=== PATIENT | male | born 1970 | race Caucasian/White ===

== ENCOUNTER → 2017-05-02 | Outpatient (CLI) | payer OTHER ==
[2017-05-02 10:26] LABS: CHOLESTEROL/HDL RATIO 5.1
== END | disposition home or self-care (01) ==
LOC: C.LAB 09:32
PROVIDERS: ATTEND Family Medicine
DX: Z00.00 Encounter for general adult medical examination without abnormal findings (principal)

== ENCOUNTER → 2017-08-11 | Outpatient (CLI) | payer OTHER ==
[2017-08-11 10:46] LABS: ALBUMIN 4.1 gm/dl (3.4-5.0); TOTAL PROTEIN 7.9 gm/dl (6.4-8.2)
== END | disposition home or self-care (01) ==
LOC: C.LAB 09:40
PROVIDERS: ATTEND Family Medicine
DX: E78.5 Hyperlipidemia, unspecified (principal)

== ENCOUNTER 2024-09-30 09:19 | Inpatient (IN) ==
--- NOTE | 2024-09-30 09:31 | Emergency Department Note ---
Impression & Plan Atrial fibrillation with RVR, Smokeless tobacco use, SANDOVAL (dyspnea on exertion) ED Provider Note NAME: JAQUELINE BELL AGE: 54 SEX: M : 1970 ARRIVES VIA: Walk-In INFORMANT: Patient, ED PROVIDER(S): Arnav Jasmine MD CHIEF COMPLAINT: Shortness of breath, palpitations MEDICAL DECISION MAKING: Patient presents with the above. The patient's EKG does show concern for A-fib with RVR. [place] of IV fluids 500 cc bolus was ordered in addition to routine blood work chest x-ray. The patient was ordered Lopressor 5 mg every 5 minutes. Patient with heart rate improvement into the 120s 130s. Patient's blood work shows a normal white count hemoglobin 13.6 with a normal platelet count. The patient's kidney function unremarkable BSG 122. Troponin negative but borderline. Chest x-ray without evidence of obvious pneumonia or volume overload. I did speak with Dr. Adhikari who agreed with Cardizem bolus and drip. Patient ordered 15 mg Cardizem IV bolus and subsequent drip. I did speak with the on-call hospitalist service Dr. Jones and the patient was admitted to the medicine service. Patient's [id number] score of 1 heparin deferred at this time. Critical Care: I have personally spent 43 minutes of critical care time in direct management of this patient. This includes bedside care, interpretation of diagnostic studies, and testing, discussion with consultants, patient, and family members, and other require inpatient management activities. This 43 minutes is in excess of all separately billable procedures. Discussion w/ other healthcare providers: Dr. Adhikari cardiology Dr. Jones inpatient medicine service Prior /Outside records reviewed: None Differential diagnosis: Premature contractions, electrolyte abnormality, cardiac dysrhythmia, thyroid dysfunction, infection, toxicologic, anxiety among others were considered. Diagnostics, as interpreted by me: ECG: A-fib RVR, ventricular rate of 159 with a normal QRS duration, normal axis no obvious ST elevations. Cardiac monitoring: An order was placed for continuous cardiac monitoring. The monitor shows a rate of 162 with irregularly irregular and tachycardic rhythm. Patient was placed on pulse oximetry Medical decision rules: [id number] score Imaging studies: I informally interpreted the patient's chest x-ray does not show evidence of obvious pneumonia or pneumothorax with formal report to follow. HPI: Patient presents due to concern for shortness of breath chest tightness and associated palpitations. The patient states that he has been more winded with activity just in the last 2 to 3 days. Patient reports that he does play a fair amount of golf and had noticed this about 2 days ago. The patient does ride in the car but because it has been quite path only the patient has been walking a bit more on the course. Patient denies any cough or fever. The patient states that he woke up around 230 this morning and had some palpitations but this eventually resolved. At that time the patient thought he had a scant wheeze and some mild chest tightness. The patient states that when he woke up again the patient has some worsening discomfort and is presented here. No prior history of heart or lung disease or A-fib. The patient denies any recent travel. No recent surgeries procedures or hospitalizations and no recent [place] or plane travel. No leg swelling or calf pain. Patient states that he does use long cut smokeless tobacco and uses less than 1 can per day. He may have 1 caffeinated soda daily. He denies any alcohol or drug use. PAST MEDICAL HISTORY: See Below PAST SURGICAL HISTORY: See Below SOCIAL HISTORY: See Below HOME MEDICATIONS: See Below ALLERGIES: See Below VITALS: See Below PHYSICAL EXAMINATION: GENERAL: NAD, non-toxic. EYE EXAM: Normal conjunctiva. PERRL, no anisocoria and EOM's grossly intact w/o pain. OROPHARYNX: Moist mucus membranes, grossly normal dentition. NECK: Trachea midline, no stridor. LUNGS: Clear to auscultation. Normal chest wall mechanics. HEART: Tachycardic and irregular irregular, no MRG. ABDOMEN: Abdomen soft, non-tender, no masses, no rebound or guarding. BACK: No CVA TTP. SKIN: No rashes and no bruising. UPPER EXTREMITIES: Upper extremities are grossly normal. LOWER EXTREMITIES: Grossly normal, no edema. Negative Homans' sign bilaterally NEURO EXAM: Awake and alert, follows commands, no obvious facial asymmetry, normal speech, moves all 4 extremities. Past Med/Surg History Problem List (Updated 09/30/24 @ 15:12 by Arnav Jasmine MD) SANDOVAL (dyspnea on exertion) (Acute) Smokeless tobacco use (Acute) Atrial fibrillation with RVR (Acute) Rhinitis medicamentosa Medical History Tibia/fibula fracture left, s/p ORIF Obesity (BMI 30-39.9) Essential hypertension Migraine Chronic sinusitis, unspecified Chronic rhinitis Surgical History S/P ORIF (open reduction internal fixation) fracture left tib-fib fracture Family History Father , age 67 Coronary heart disease CHF (congestive heart failure) Mother , age 75 Pulmonary fibrosis Brother Hypertension Hyperlipidemia Social History Smoking Status: Former smoker Tobacco Type: Smokeless Tobacco (Dip or Chew) Smoking End Date: quit cigarettes in his 20s; then switched to snuff; Do You Dip or Chew Tobacco: Yes; Hx Alcohol Use: No Hx Substance Use: No Preferred Language: Sami Communication Ability: Effective Barker Operator Required: No Beliefs That Will Affect Care: None marital status: Current Living Situation: Spouse Current Living Situation Comment: home in [place] current occupational status: employed 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 How many Children do You have: 0 Other Information That Helps Us Care for You: No Feels Safe at Home: Yes Safety Concerns: Feels Safe At This Time Assistive Devices: None Allergies Allergies Allergy/AdvReac Type Severity Reaction Status Date / Time Penicillins Allergy Severe Swelling Verified 06/15/23 10:54 of Lip/Tongue/Throat Home Meds Home Medications Medication Instructions Recorded Confirmed escitalopram oxalate 10 mg tablet 20 mg PO PM 06/12/22 09/30/24 (Lexapro) hydrochlorothiazide 25 mg tablet 25 mg PO QAM 06/12/22 09/30/24 losartan 100 mg tablet 100 mg PO PM 06/12/22 09/30/24 Results & Data (ED) Vital Signs Vital Signs - 24 hr 09/30/24 09:19 09/30/24 09:19 09/30/24 09:24 Temperature 36.3 C L Temperature Source Skin Pulse Rate 91 H Respiratory Rate 22 Respiratory Effort / Characteristics Non-Labored Respiratory Depth Normal Blood Pressure 138/102 H Blood Pressure Mean 114 Pulse Oximetry 96 Oxygen Delivery Method Room Air Room Air Room Air Sepsis Recent Fever Within 48 Hours No Sepsis New/Unexplained Change in Mental Status N/A Sepsis Action Taken by Nursing No Action Required 09/30/24 09:38 09/30/24 09:39 09/30/24 09:48 Temperature Temperature Source Pulse Rate 162 H 146 H 158 H Respiratory Rate 16 14 Respiratory Effort / Characteristics Respiratory Depth Blood Pressure 146/119 H 161/99 H Blood Pressure Mean 128 119 Pulse Oximetry 98 Oxygen Delivery Method Sepsis Recent Fever Within 48 Hours Sepsis New/Unexplained Change in Mental Status Sepsis Action Taken by Nursing 09/30/24 09:51 09/30/24 10:07 09/30/24 10:09 Temperature Temperature Source Pulse Rate 157 H 152 H 130 H Respiratory Rate 18 Respiratory Effort / Characteristics Respiratory Depth Blood Pressure 146/119 H 161/99 H 161/99 H Blood Pressure Mean 119 Pulse Oximetry Oxygen Delivery Method Sepsis Recent Fever Within 48 Hours Sepsis New/Unexplained Change in Mental Status Sepsis Action Taken by Nursing 09/30/24 10:17 09/30/24 10:30 09/30/24 10:45 Temperature Temperature Source Pulse Rate 136 H 135 H 136 H Respiratory Rate 15 17 Respiratory Effort / Characteristics Respiratory Depth Blood Pressure 153/115 H 128/110 H 125/103 H Blood Pressure Mean 116 110 Pulse Oximetry Oxygen Delivery Method Sepsis Recent Fever Within 48 Hours Sepsis New/Unexplained Change in Mental Status Sepsis Action Taken by Nursing 09/30/24 11:15 09/30/24 11:42 Temperature Temperature Source Pulse Rate 123 H 123 H Respiratory Rate 22 12 Respiratory Effort / Characteristics Respiratory Depth Blood Pressure 125/103 H 146/91 H Blood Pressure Mean 110 109 Pulse Oximetry Oxygen Delivery Method Sepsis Recent Fever Within 48 Hours Sepsis New/Unexplained Change in Mental Status Sepsis Action Taken by Custodial Medications Current Medication List: was personally reviewed by [place] Laboratory Data Attestation: I reviewed the patient's lab results. 09/30/24 09:46 09/30/24 09:46 Lab Results 09/30/24 Range/Units 09:46 WBC 9.02 (4.8-10.8) K/ul RBC 4.49 L (4.70-6.10) M/uL Hgb 13.6 L (14.0-18.0) g/dl Hct 40.1 L (42.0-52.0) % MCV 89.3 (80.0-100.0) fL MCH 30.3 (25.0-34.0) pg MCHC 33.9 (32.0-36.0) g/dL RDW Std Deviation 41.1 (36.4-46.3) fL RDW Coeff of Todd 12.6 (11.5-14.5) % Plt Count 254 (130-400) K/uL MPV 9.9 (9.4-12.4) fL Immature Gran % (Auto) 0.3 % Neut % (Auto) 74.9 % Lymph % (Auto) 15.2 % [place] % (Auto) 7.0 % Eos % (Auto) 2.4 % Baso % (Auto) 0.2 % Neut # (Auto) 6.75 H (1.40-6.50) K/uL Lymph # (Auto) 1.37 (1.20-3.40) K/uL [place] # (Auto) 0.63 H (0.11-0.59) K/uL Eos # (Auto) 0.22 (0.00-0.50) K/uL Baso # (Auto) 0.02 (0.00-0.20) K/uL Immature Gran # (Auto) 0.03 (0.01-0.20) K/uL PT 11.5 (9.0-12.0) Seconds INR 1.1 (0.9-1.1) APTT 25 (21-31) Seconds PTT Ratio 0.9 Sodium 139 (136-145) mmol/L Potassium 3.9 (3.5-5.1) mmol/L Chloride 107 (98-107) mmol/L Carbon Dioxide 22 (21-32) mmol/L Anion Gap 10 (3-11) BUN 18 (6-23) mg/dl Creatinine 0.90 (0.6-1.4) mg/dl Est Cr Clr Drug Dosing 136.4 ml/min eGFR 101.49 BUN/Creatinine Ratio 20.0 (10-20) Glucose 122 H (70-99(Fasting)) mg/dl Estimat Average Glucose 114 mg/dl Hemoglobin A1c 5.6 (4.5-5.6) % Calcium 9.4 (8.6-10.3) mg/dl Phosphorus 3.1 (2.5-4.9) mg/dl Magnesium 2.0 (1.7-2.4) mg/dl Total Bilirubin 0.6 (0.2-1.0) mg/dl AST 16 (13-39) U/L ALT 27 (7-52) U/L Alkaline Phosphatase 64 (34-104) U/L Troponin I High Sens 19.6 (0-20) pg/ml Total Protein 7.4 (6.0-8.3) gm/dl Albumin 4.3 (3.4-5.0) gm/dl Globulin 3.1 (2.5-4.0) gm/dl Albumin/Globulin Ratio 1.4 (0.9-2) TSH 1.540 (0.300-4.500) uIu/ml Administered Medications Diltiazem HCl 125 mg/ Dextrose 125 mls @ 7.5 mls/hr IV .[id number] [facility]; Protocol Stop: 10/30/24 10:44 Last Titration: 09/30/24 12:43 Dose: 7.5 mg/hr, 7.5 mls/hr Documented By: FAMILIA Co-signed By: ALEKSANDR Admin: 09/30/24 11:02 Dose: 5 mg/hr, 5 mls/hr Documented By: FAMILIA Co-signed By: BUD Discontinued Medications Diltiazem HCl (Diltiazem Hcl 5 Mg/Ml 5 Ml Vial) 15 mg IV NOW STA Stop: 09/30/24 10:38 Last Admin: 09/30/24 11:03 Dose: 15 mg Documented By: FAMILIA Co-signed By: BUD Furosemide (Furosemide Inj 20 Mg/2 Ml Vial) 20 mg IV ONE ONE Stop: 09/30/24 13:11 Last Admin: 09/30/24 13:48 Dose: 20 mg Documented By: FAMILIA Sodium Chloride (Nss) 500 mls @ 999 mls/hr IV .Q31M ONE Stop: 09/30/24 11:07 Last Infusion: 09/30/24 15:07 Dose: Infused Documented By: Admin: 09/30/24 11:03 Dose: 999 mls/hr Documented By: FAMILIA Metoprolol Tartrate (Metoprolol Tartrate 1 Mg/Ml Vial) 5 mg IV Q5M PRN PRN Reason: Tachycardia Stop: 10/30/24 09:38 Last Admin: 09/30/24 10:17 Dose: 5 mg Documented By: Admin: 09/30/24 10:07 Dose: 5 mg Documented By: Admin: 09/30/24 09:51 Dose: 5 mg Documented By: FAMILIA Miscellaneous (Stat Iv Infusion Titration Per Protocol) 1 each N/A NOW STA Stop: 09/30/24 10:38 Last Admin: 09/30/24 11:03 Dose: Not Given Documented By: FAMILIA Potassium Chloride (Potassium Chloride Crtab 20 Meq Tabcr) 20 meq PO NOW STA Stop: 09/30/24 13:11 Last Admin: 09/30/24 13:49 Dose: 20 meq Documented By: FAMILIA Imaging Data Radiologist's Impression: Chest X-Ray 09/30/24 09:39 XR chest 1V portable CLINICAL HISTORY: Dyspnea COMPARISON STUDY: None FINDINGS: Heart size and pulmonary vasculature are normal. Inspiration is shallow. No effusion, consolidation, or pneumothorax. IMPRESSION: No acute findings. ACT 112: Negative or not required by law. Electronically signed by: Keo Monterroso M.D. 09/30/2024 10:23 AM Discharge Plan Visit Data Chief Complaint: Shortness of Breath/Dyspnea Stated Complaint: HEART TIGHTNESS, SOB ED Provider: Arnav Jasmine Discharge Problem: Atrial fibrillation with RVR, Smokeless tobacco use, SANDOVAL (dyspnea on exertion) Patient Disposition: Admitted As Inpatient Condition: Good Discharge Instructions Interventions: ED Discharge Assessment Last Done: 09/30/24 14:03
[2024-09-30 10:04] LABS: Basophils # (auto) 0.02 K/uL (0.00-0.20); Basophils % (auto) 0.2 %; Eosinophils # (auto) 0.22 K/uL (0.00-0.50); Eosinophils % (auto) 2.4 %; Hematocrit (blood only) 40.1 % (42.0-52.0); Hemoglobin 13.6 g/dl (14.0-18.0); Immature Granulocytes # (auto) 0.03 K/uL (0.01-0.20); Immature Granulocytes % (auto) 0.3 %; Lymphocytes # (auto) 1.37 K/uL (1.20-3.40); Lymphocytes % (auto) 15.2 %; Mean Corpuscular Hemoglobin 30.3 pg (25.0-34.0); Mean Corpuscular Hgb Conc 33.9 g/dL (32.0-36.0); Mean Corpuscular Volume 89.3 fL (80.0-100.0); Mean Platelet Volume 9.9 fL (9.4-12.4); Monocytes # (auto) 0.63 K/uL (0.11-0.59); Neutrophils # (auto) 6.75 K/uL (1.40-6.50); Neutrophils % (auto) 74.9 %; Platelet Count 254 K/uL (130-400); RDW Coefficient of Variation 12.6 % (11.5-14.5); RDW Standard Deviation 41.1 fL (36.4-46.3); Red Blood Count 4.49 M/uL (4.70-6.10); White Blood Count 9.02 K/ul (4.8-10.8)
[2024-09-30 10:24] LABS: Albumin Globulin Ratio 1.4 (0.9-2); Albumin Level 4.3 gm/dl (3.4-5.0); Bilirubin,Total 0.6 mg/dl (0.2-1.0); Calcium 9.4 mg/dl (8.6-10.3); Creatinine Clr Calc Pharmacy 136.4 ml/min; Globulin 3.1 gm/dl (2.5-4.0); Phosphorus 3.1 mg/dl (2.5-4.9); Potassium 3.9 mmol/L (3.5-5.1); Total Protein 7.4 gm/dl (6.0-8.3)
--- NOTE | 2024-09-30 10:24 | XRay Report ---
XR chest 1V portable CLINICAL HISTORY: Dyspnea COMPARISON STUDY: None FINDINGS: Heart size and pulmonary vasculature are normal. Inspiration is shallow. No effusion, conso lidation, or pneumothorax. IMPRESSION: No acute findings. ACT 112: Negative or not required by law. Electronically signed by: Keo Monterroso M.D. 09/30/2024 10:23 AM
[2024-09-30 10:29] LABS: Troponin I High Sensitivity 19.6 pg/ml (0-20)
[2024-09-30 10:37] LABS: INR 1.1 (0.9-1.1); Partial Thromboplastin Ratio 0.9; Partial Thromboplastin Time 25 Seconds (21-31); Prothrombin Time 11.5 Seconds (9.0-12.0)
--- NOTE | 2024-09-30 11:34 | History & Physical Report ---
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 Upon ER presentation found to be in a.fib with RVR. #a.fib with RVR - -metoprolol 5mg IV x 3 doses without appreciable effect on rates -thus, diltiazem bolus followed by drip instituted by ER physician -will continue diltiazem drip, titrate as needed -add back metoprolol tartrate 25mg BID -although CHADS-VASC score is only 1 (HTN only; a1c not c/w T2DM) will add Eliquis 5mg BID in the event he does not convert back to NSR spontaneously and elective cardioversion is needed in 1 month -of note TSH, K, mag all wnl -echo - check LV function, check valve function -place cardiology consult to Dr Adhikari, appreciate his assistance -repeat labs in am -although not fully certain I am concerned he is in pulmonary edema given his symptoms last few days (dyspnea on exertion, PND, "wheezing", etc) and his lung exam findings -lasix 20mg IV x 1 with K supplement -re-eval tomorrow -labs in am #HTN - -hold HCTZ & losartan to allow more room in BP while on diltiazem & metoprolol #obesity - -BMI 37.8 #smokeless tobacco use - -nicoderm patch while here #mood disorder - -cont lexapro daily #DVT Proph - -Eliquis 5mg BID #h/o mild YOCASTA - -by report had sleep study several years ago that was classified as mild & device was not advised - reports he snores so loudly that she has to sleep in different room -repeat sleep study as outpatient again? 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 Patient states he was in his usual state of health until last Thursday when he was playing a round of golf and noted dyspnea on exertion. He typically does not have any shortness of breath while golfing. Then on Thursday of this week he was walking his dog up a hill in [place] and noted dyspnea on exertion once again which is not typical for him. He then noted on that he simply wasn't feeling that well. He continued to note mild dyspnea on exertion. Then, early this am, he had the orthopnea/etc that was mentioned above. Upon presentation to [facility] he was found to be in rapid a.fib. Lopressor 5mg x 3 doses IV were given without rate improvement. Thus, diltiazem drip was initiated. Denies any LE edema or abdominal swelling. Denies any prior h/o a.fib. Denies excessive etoh use although he does drink a couple of times/week - perhaps 2-3 beers each time. Denies recent travel. Denies any prior thyroid disease. Had sleep study a few years ago showing mild YOCASTA only. states he still continues to snore very loudly at night. Allergies Allergy/AdvReac Type Severity Reaction Status Date / Time Penicillins Allergy Severe Swelling Verified 06/15/23 10:54 of Lip/Tongue/Throat Home Medications Medication Instructions Recorded Confirmed Type escitalopram oxalate 10 mg tablet 20 mg PO PM 06/12/22 09/30/24 History (Lexapro) hydrochlorothiazide 25 mg tablet 25 mg PO QAM 06/12/22 09/30/24 History losartan 100 mg tablet 100 mg PO PM 06/12/22 09/30/24 History Past Med/Surg History Problem List (Updated 09/30/24 @ 16:43 by Aung Adhikari MD) Essential hypertension SANDOVAL (dyspnea on exertion) (Acute) Smokeless tobacco use (Acute) Atrial fibrillation with RVR (Acute) Rhinitis medicamentosa Medical History Tibia/fibula fracture left, s/p ORIF Obesity (BMI 30-39.9) Essential hypertension Migraine Chronic sinusitis, unspecified Chronic rhinitis Surgical History S/P ORIF (open reduction internal fixation) fracture left tib-fib fracture Family History Father , age 67 Coronary heart disease CHF (congestive heart failure) Mother , age 75 Pulmonary fibrosis Brother Hypertension Hyperlipidemia Social History Smoking Status: Former smoker Tobacco Type: Smokeless Tobacco (Dip or Chew) Smoking End Date: quit cigarettes in his 20s; then switched to snuff; Do You Dip or Chew Tobacco: Yes; Hx Alcohol Use: No Hx Substance Use: No Preferred Language: Burundian Communication Ability: Effective Construction Site Crossing Guard Required: No Beliefs That Will Affect Care: None marital status: Current Living Situation: Spouse Current Living Situation Comment: home in [place] current occupational status: employed 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 How many Children do You have: 0 Other Information That Helps Us Care for You: No Feels Safe at Home: Yes Safety Concerns: Feels Safe At This Time Assistive Devices: None Review of Systems Review of Systems: gen - no fevers, chills, loss of appetite or significant weight change eyes - no loss of vision HENT - chronic rhinitis CV - chest tightness this am at 0230; no pain; palpitations early this am; orthopnea/PND; no edema pulm - dyspnea on exertion for the last week or so GI - no nausea/emesis/abd pain/blood in stool - no hematuria musculo - no myalgias neuro - no motor weakness, paresthesias or headache skin - no generalized rash endo - no h/o DM Physical Exam Physical Exam: gen - pleasant, obese, NAD eyes - PERRL HENT - MMM, no lesions neck - difficult to assess for JVD due to neck size; no bruits, no mass, no lymph nodes heart - tachy, s1 s2, irregularly irregular, no murmur lungs - fine b/l basilar rales, no increased work of breathing, no wheezes abd - soft NT ND BS+; no HSM ext - no edema vascular - pulses b/l feet 2+ psych - a/o x 3 neuro - strength 5/5 x 4 exts, DTRs 2+ b/l Results & Data Results & Data Vital Signs (Past 12 Hours) Vital Signs Temp Pulse Resp BP Pulse Ox O2 Del Method 09/30/24 10:17 136 H 153/115 H 09/30/24 10:07 152 H 161/99 H 09/30/24 09:51 157 H 146/119 H 09/30/24 09:38 162 H 09/30/24 09:24 36.3 C L 91 H 22 138/102 H 96 Room Air 09/30/24 09:19 Room Air 09/30/24 09:19 Room Air Laboratory Results Laboratory Results - last 24 hr 09/30/24 09:46 WBC 9.02 RBC 4.49 L Hgb 13.6 L Hct 40.1 L MCV 89.3 MCH 30.3 MCHC 33.9 RDW Std Deviation 41.1 RDW Coeff of Todd 12.6 Plt Count 254 MPV 9.9 Immature Gran % (Auto) 0.3 Neut % (Auto) 74.9 Lymph % (Auto) 15.2 [place] % (Auto) 7.0 Eos % (Auto) 2.4 Baso % (Auto) 0.2 Neut # (Auto) 6.75 H Lymph # (Auto) 1.37 [place] # (Auto) 0.63 H Eos # (Auto) 0.22 Baso # (Auto) 0.02 Immature Gran # (Auto) 0.03 PT 11.5 INR 1.1 APTT 25 PTT Ratio 0.9 Sodium 139 Potassium 3.9 Chloride 107 Carbon Dioxide 22 Anion Gap 10 BUN 18 Creatinine 0.90 Est Cr Clr Drug Dosing 136.4 eGFR 101.49 BUN/Creatinine Ratio 20.0 Glucose 122 H Estimat Average Glucose 114 Hemoglobin A1c 5.6 Calcium 9.4 Phosphorus 3.1 Magnesium 2.0 Total Bilirubin 0.6 AST 16 ALT 27 Alkaline Phosphatase 64 Troponin I High Sens 19.6 Total Protein 7.4 Albumin 4.3 Globulin 3.1 Albumin/Globulin Ratio 1.4 TSH 1.540 Diagnostic Findings Chest X-Ray 09/30/24 09:39 XR chest 1V portable CLINICAL HISTORY: Dyspnea COMPARISON STUDY: None FINDINGS: Heart size and pulmonary vasculature are normal. Inspiration is shallow. No effusion, consolidation, or pneumothorax. IMPRESSION: No acute findings. ACT 112: Negative or not required by law. Electronically signed by: Keo Monterroso M.D. 09/30/2024 10:23 AM EKG - rapid a.fib, IRBBB, no ST changes Code Status & VTE Plan Code Status full code PG Care Time/CCT Total # of Minutes Spent Total Time Spent with Patient: Total time spent is greater than 50% in coordination of care (as documented) at patient's floor/unit and/or counseling patient: Coding Level of Care Code 79105 INT INP/OBS CARE 2/55MIN Diagnoses Atrial fibrillation with RVR I48.91 Essential hypertension I10 Obesity (BMI 30-39.9) E66.9 Smokeless tobacco use Z72.0
[2024-09-30 12:22] LABS: Thyroid Stimulating Hormone 1.54 uIu/ml (0.300-4.500)
[2024-09-30 12:23] LABS: Estimated Average Glucose 114 mg/dl; Hemoglobin A1C 5.6 % (4.5-5.6)
--- NOTE | 2024-09-30 13:44 | XCELERA ---
[id number]
--- NOTE | 2024-09-30 14:15 | Electrocardiogram Report ---
Test Reason : Blood Pressure : */* mmHG Vent. Rate : 159 BPM Atrial Rate : * BPM P-R Int : * ms QRS Dur : 100 ms QT Int : 286 ms P-R-T Axes : * -21 19 degrees QTcB Int : 465 ms Atrial fibrillation with rapid ventricular response Incomplete right bundle branch block Abnormal ECG No previous ECGs available Confirmed by Aung Adhikari ([id number]) on 09/30/2024 2:15:18 PM Referred By: Confirmed By: Aung Adhikari
--- NOTE | 2024-09-30 16:17 | Electrocardiogram Report ---
Test Reason : Blood Pressure : */* mmHG Vent. Rate : 135 BPM Atrial Rate : * BPM P-R Int : * ms QRS Dur : 104 ms QT Int : 334 ms P-R-T Axes : * -12 24 degrees QTcB Int : 501 ms Atrial fibrillation with rapid ventricular response Incomplete right bundle branch block Abnormal ECG When compared with ECG of 30-Sep-2024 09:33, No significant change was found Confirmed by Aung Adhikari ([id number]) on 09/30/2024 4:16:52 PM Referred By: REFERRED SELF Confirmed By: Aung Adhikari
--- NOTE | 2024-09-30 16:46 | Cardiology Consultation ---
Date of Consultation September 30, 2024 Assessment & Plan (1) Atrial fibrillation with RVR: -Likely started hide with this morning, or on Thursday. -Agree with diltiazem drip. -Would institute metoprolol to tartrate. -Would start Eliquis 5 Mg twice daily to keep our options open. -[id number] score "1" for hypertension. (2) Essential hypertension: -Adequate control on current regimen. History of Present Illness Attending Physician: Missael Jones MD History of Present Illness Mr. Kruse is a 54-year-old male admitted earlier today with new onset atrial fibrillation and a rapid ventricular response. This consultation was ordered to assist in his cardiac management. The patient was in his usual state of health until Thursday. While playing golf, he noticed some exertional dyspnea which was somewhat unusual. No chest pain or palpitations. This morning, at 2:30 AM, the patient awoke from sleep with an upper sternal chest "heaviness" and orthopnea. He was quite concerned, therefore, presented to the emergency room. On arrival here, he was noted to be in atrial fibrillation with a rapid ventricular response. He received 3 doses of intravenous metoprolol with little change. He was then started on a diltiazem drip. The patient has never known diagnosis of atrial fibrillation. He has never exp erienced sustained palpitations. Currently, patient is resting comfortably in bed and without complaints. Past medical and surgical history 1. Hypertension 2. Obesity 3. Obstructive sleep apnea 4. Migraine headaches 5. Chronic sinusitis 6. Left tib/fib ORIF 7. 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 Allergies Allergy/AdvReac Type Severity Reaction Status Date / Time Penicillins Allergy Severe Swelling Verified 06/15/23 10:54 of Lip/Tongue/Throat Home Medications Medication Instructions Recorded Confirmed Type escitalopram oxalate 10 mg tablet 20 mg PO PM 06/12/22 09/30/24 History (Lexapro) hydrochlorothiazide 25 mg tablet 25 mg PO QAM 06/12/22 09/30/24 History losartan 100 mg tablet 100 mg PO PM 06/12/22 09/30/24 History Patient History Medical History Tibia/fibula fracture left, s/p ORIF Obesity (BMI 30-39.9) Essential hypertension Migraine Chronic sinusitis, unspecified Chronic rhinitis Surgical History S/P ORIF (open reduction internal fixation) fracture left tib-fib fracture Family History Father , age 67 Coronary heart disease CHF (congestive heart failure) Mother , age 75 Pulmonary fibrosis Brother Hypertension Hyperlipidemia Social History Smoking Status: Former smoker Tobacco Type: Smokeless Tobacco (Dip or Chew) Smoking End Date: quit cigarettes in his 20s; then switched to snuff; Do You Dip or Chew Tobacco: Yes; Hx Alcohol Use: No Hx Substance Use: No Preferred Language: Telugu Communication Ability: Effective 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 HEENT exam is negative. Neck reveals normal carotid upstrokes without bruits. Jugular venous pressure is flat at 90. There is no thyromegaly. Cardiovascular exam reveals an irregularly irregular rhythm with distant heart sounds. No obvious murmurs. Lungs are clear without rales, rhonchi, or wheezes. Abdomen is soft without bruits. Extremities reveal intact radial artery and posterior tibial pulses bilaterally. There is no peripheral edema. Results & Data Vital Signs (Past 12 Hours) Vital Signs Temp Pulse Pulse Resp BP BP Pulse Ox 09/30/24 15:00 109 H 09/30/24 14:16 37.0 C 110 H 14 135/100 97 09/30/24 14:16 09/30/24 14:03 118 H 20 142/89 H 98 09/30/24 13:18 135 H 15 156/109 H 09/30/24 12:57 120 H 21 137/111 H 09/30/24 12:51 125 H 20 147/101 H 09/30/24 12:18 122 H 20 155/97 H 09/30/24 12:03 111 H 18 140/116 H 09/30/24 11:51 116 H 20 126/99 97 09/30/24 11:42 123 H 12 146/91 H 09/30/24 11:15 123 H 22 125/103 H 09/30/24 10:45 136 H 17 125/103 H 09/30/24 10:30 135 H 15 128/110 H 09/30/24 10:17 136 H 153/115 H 09/30/24 10:09 130 H 18 161/99 H 09/30/24 10:07 152 H 161/99 H 09/30/24 09:51 157 H 146/119 H 09/30/24 09:48 158 H 14 161/99 H 09/30/24 09:39 146 H 16 146/119 H 98 09/30/24 09:38 162 H 09/30/24 09:24 36.3 C L 91 H 22 138/102 H 96 09/30/24 09:19 09/30/24 09:19 Pulse Ox O2 Del Method 09/30/24 15:00 09/30/24 14:16 Room Air 09/30/24 14:16 97 09/30/24 14:03 Room Air 09/30/24 13:18 09/30/24 12:57 09/30/24 12:51 09/30/24 12:18 09/30/24 12:03 09/30/24 11:51 09/30/24 11:42 09/30/24 11:15 09/30/24 10:45 09/30/24 10:30 09/30/24 10:17 09/30/24 10:09 09/30/24 10:07 09/30/24 09:51 09/30/24 09:48 09/30/24 09:39 09/30/24 09:38 09/30/24 09:24 Room Air 09/30/24 09:19 Room Air 09/30/24 09:19 Room Air Laboratory Results CBC, PRP, magnesium, TSH levels are all unremarkable. High-sensitivity troponin is 19.6. Diagnostic Findings Echocardiogram notes normal left ventricular systolic function with ejection fraction 55 to 60%. There is mild LVH along with mild to moderate mitral digitation. EKG notes atrial fibrillation with rapid ventricular spots. Chest x-ray shows no acute disease. PG Care Time/CCT Total # of Minutes Spent Total Time Spent with Patient: Total time spent is greater than 50% in coordination of care (as documented) at patient's floor/unit and/or counseling patient: Coding Level of Care Code 19359 IN/OBS CONSULT LVL 4,60M Diagnoses Atrial fibrillation with RVR I48.91 Essential hypertension I10
[2024-10-01 06:16] LABS: BUN Creatinine Ratio 18.1 (10-20); Calcium 9.3 mg/dl (8.6-10.3); Creatinine Clr Calc Pharmacy 147.8 ml/min
--- NOTE | 2024-10-01 13:29 | Cardiology Progress Note ---
Date of Service October 01, 2024 Assessment & Plan (1) Atrial fibrillation with RVR: (2) Essential hypertension: (3) Smokeless tobacco use: (4) Sleep apnea: Plan Rec HR control on BB and CCB; NOAC for stroke prevention. OK to DC in next 24 hours Follow up in office-plan to do OP DC cardioversion if he does not convert on his own. Will set up for EVENT monitor as outpatient before and after cardioversion. follow up with Dr. Frye-he plans to follow up with me since all of his dctors are within [facility]. Admission and Anticipated Discharge Date Admission Date: September 30, 2024 Subjective Follow up from Dr. Adhikari yesterday. Mr. Kruse is a 54-year-old male admitted earlier today with new onset atrial fibrillation and a rapid ventricular res ponse. This consultation was ordered to assist in his cardiac management. The patient was in his usual state of health until Thursday. While playing golf, he noticed some exertional dyspnea which was somewhat unusual. No chest pain or palpitations. This morning, at 2:30 AM, the patient awoke from sleep with an upper sternal chest "heaviness" and orthopnea. He was quite concerned, therefore, presented to the emergency room. On arrival here, he was noted to be in atrial fibrillation with a rapid ventricular response. He received 3 doses of intravenous metoprolol with little change. He was then started on a diltiazem drip. The patient has never known diagnosis of atrial fibrillation. He has never experienced sustained palpitations.-to switch over to po diltiazem. On NOAC. Discussed re-eval of YOCASTA as this is likely underlying drving force behind Afib. Review of Systems Review of Systems: All systems reviewed & are unremarkable except as noted in HPI & below Physical Exam Physical Exam: comfortable in NAD here Cardiovascular: irregular tachy Results & Data Vital Signs (Past 12 Hours) Vital Signs Temp Pulse Pulse Resp BP BP Pulse Ox 10/01/24 11:41 36.5 C 123 H 20 126/88 95 10/01/24 09:00 10/01/24 08:10 36.5 C 118 H 21 149/96 H 90 10/01/24 08:00 114 H 10/01/24 03:21 36.7 C 115 H 18 123/92 91 10/01/24 02:33 113 H O2 Del Method 10/01/24 11:41 Room Air 10/01/24 09:00 Room Air 10/01/24 08:10 Room Air 10/01/24 08:00 10/01/24 03:21 Room Air 10/01/24 02:33 Laboratory Results Abnormal lab results 10/01/24 Range/Units 05:26 Glucose 122 H (70-99(Fasting)) mg/dl Medications Administered Current Inpatient Medications Acetaminophen (Acetaminophen 325 Mg Tab) 650 mg PO Q4H PRN PRN Reason: Pain or Fever Stop: 10/30/24 14:15 Last Admin: 10/01/24 07:30 Dose: 650 mg Apixaban (Apixaban 5 Mg Tablet) 5 mg PO BID [facility] Stop: 10/30/24 20:59 Last Admin: 10/01/24 08:09 Dose: 5 mg Escitalopram Oxalate (Escitalopram Oxalate 20 Mg Tab) 20 mg PO PM [facility] Stop: 10/30/24 20:59 Last Admin: 09/30/24 20:15 Dose: 20 mg Diltiazem HCl 125 mg/ Dextrose 125 mls @ 10 mls/hr IV .[id number] [facility]; Protocol Stop: 10/30/24 10:44 Last Titration: 10/01/24 07:04 Dose: 10 mg/hr, 10 mls/hr Melatonin (Melatonin 3 Mg Tab) 3 mg PO HS PRN PRN Reason: Sleep Stop: 10/30/24 14:15 Metoprolol Tartrate (Metoprolol Tartrate 50 Mg Tab) 50 mg PO BID [facility] Stop: 10/31/24 08:59 Last Admin: 10/01/24 08:08 Dose: 50 mg Miscellaneous (Remove Nicoderm Patch) 1 each N/A DAILY@0859 [facility] Stop: 10/31/24 08:58 Last Admin: 10/01/24 07:30 Dose: 1 each Nicotine (Nicotine 7 Mg/24 Hr Tdsy) 1 patch TD QAM [facility] Stop: 10/30/24 14:15 Last Admin: 10/01/24 07:30 Dose: Not Given Ondansetron HCl (Ondansetron Inj 2 Mg/Ml 2 Ml Vial) 4 mg IV Q6H PRN PRN Reason: Nausea Stop: 10/30/24 14:15
--- NOTE | 2024-10-01 21:05 | Hospitalist Progress Note ---
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 Upon ER presentation found to be in a.fib with RVR. #a.fib with RVR - -improving, but not optimal rates just yet -late in the day, while patient was sitting in bed eating his dinner, rates were 100s to 120s -cardizem infused changed to PO cardizem CD 240mg daily -metoprolol tartrate increased from 25mg BID to 50mg BID this am -rates still fast thus increased to 75mg BID this evening -although CHADS-VASC score is only 1 (HTN only; a1c not c/w T2DM) added Eliquis 5mg BID in the event he does not convert back to NSR spontaneously and elective cardioversion is needed in 1 month -of note TSH, K, mag all wnl -echo - preserved EF, normal valve function -appreciate cardiology consult & recs -repeat labs in am #HTN - -hold HCTZ but plan to resume losartan tomorrow if additional BP control is needed #suspected acute pulmonary edema - acute HFpEF - -s/p lasix IV yesterday with excellent diuresis and improved pulmonary symptoms -give another dose of IV lasix this am -labs in am, then reassess for 1 more dose of lasix tomorrow -acute HFpEF 2nd to a.fib with RVR #obesity - -BMI 37 #smokeless tobacco use - -nicoderm patch #mood disorder - -cont lexapro daily #DVT Proph - -Eliquis 5mg BID #h/o mild YOCASTA - -by report had sleep study several years ago that was classified as mild & device was not advised - reports he snores so loudly that she has to sleep in different room -advise repeat sleep study as outpatient again -untreated YOCASTA can increase risk of a.fib pt's updated at bedside today appreciate cardiology assistance home tomorrow if rates are acceptable Admission and Anticipated Discharge Date Admission Date: September 30, 2024 Subjective tele overnight - a.fib, rates low 100s at rest with activity - rates 120s/130s patient overall feeling much better "wheeze"/dyspnea improved & nearly resolved denies palpitations denies chest tightness/pain no new complaints at bedside during the visit Review of Systems Review of Systems: CV - no orthopnea/PND last pm; no edema pulm - no dyspnea GI - no abd pain or N/V Physical Exam Physical Exam: gen - pleasant, obese, NAD; looks good today neck - difficult to assess for JVD due to neck size but no obvious JVD heart - tachy low 100s; s1 s2, irregularly irregular, no murmur lungs - fine b/l basilar rales IMPROVED/nearly resolved, no increased work of breathing, no wheezes abd - soft NT ND BS+; no HSM ext - no edema vascular - pulses b/l feet 2+ Results & Data Results & Data Vital Signs (Past 12 Hours) Vital Signs Temp Pulse Resp BP BP Pulse Ox O2 Del Method 10/01/24 19:51 36.7 C 108 H 16 128/82 94 Room Air 10/01/24 19:34 Room Air 10/01/24 16:11 36.7 C 103 H 20 131/95 94 Room Air 10/01/24 15:12 96 H 20 136/88 97 Room Air 10/01/24 11:41 36.5 C 123 H 20 126/88 95 Room Air Laboratory Results Laboratory Results - last 24 hr 10/01/24 05:26 Sodium 137 Potassium 4.0 Chloride 103 Carbon Dioxide 24 Anion Gap 10 BUN 15 Creatinine 0.83 Est Cr Clr Drug Dosing 147.8 eGFR 104.01 BUN/Creatinine Ratio 18.1 Glucose 122 H Calcium 9.3 PG Care Time/CCT Total # of Minutes Spent Total Time Spent with Patient: Total time spent is greater than 50% in coordination of care (as documented) at patient's floor/unit and/or counseling patient: Coding Level of Care Code 75889 SUB INP/OBS CARE 2/35MIN Diagnoses Atrial fibrillation with RVR I48.91 Essential hypertension I10 Obesity (BMI 30-39.9) E66.9 Smokeless tobacco use Z72.0
[2024-10-02 06:53] LABS: Creatinine Clr Calc Pharmacy 144.6 ml/min; Magnesium 2.2 mg/dl (1.7-2.4); Potassium 4.3 mmol/L (3.5-5.1)
[2024-10-02 11:38] VITALS: BP 115/79; PULSE 102; RESP 21; TEMP 98.1; O2SAT 94
--- NOTE | 2024-10-02 18:01 | Discharge Summary ---
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 Upon ER presentation found to be in a.fib with RVR. #a.fib with RVR - -upon admission Mr Kruse was initiated on cardizem infusion for rate control -cardizem alone did not achieve rate control thus metoprolol tartrate was added -cardizem infusion ultimately changed to PO cardizem CD 240mg daily -metoprolol tartrate was titrated from 25mg BID to 75mg BID while here -although CHADS-VASC score was only 1 (HTN only; a1c not c/w T2DM) we added Eliquis 5mg BID in the event he does not convert back to NSR spontaneously and elective cardioversion is needed in 1 month -of note - TSH, K, mag all wnl during the stay -echo - preserved EF, normal valve function -seen by [facility], then [facility]; he will follow up with [facility] after discharge -the combination of cardizem CD + metoprolol provided fair rate control -at discharge he will take - * cardizem CD 240mg qam * metoprolol succinate 100mg HS * Eliquis 5mg BID -again, if patient is still in a.fib in 1 month, [facility] likely will pursue elective cardioversion -he was asked to check his BPs and HRs at home; he will purchase a dual BP/HR machine for home #suspected acute pulmonary edema - acute HFpEF - -the patient had b/l rales on exam and reported orthopnea/dyspnea/wheezing leading up to admission -s/p lasix IV x 2 days, then PO lasix thereafter with improved pulmonary symptoms -suspected acute HFpEF 2nd to a.fib with RVR -at discharge I asked him to check daily AM weights and to use lasix 20mg prn (along with K supplementation) for weight gains #HTN - -stop HCTZ -hold losartan for now -if systolic BPs are consistently <140 he can continue to hold the losartan #obesity - -BMI 37 #smokeless tobacco use - -nicoderm patch employed while here #mood disorder - -cont lexapro daily #snoring / history of mild YOCASTA - -by report had sleep study several years ago that was classified as mild & device was not advised - reports that he still snores so loudly that she has to sleep in different room -advise repeat sleep study as outpatient again -untreated YOCASTA can increase risk of a.fib Notes For Next Care Provider Medication Changes From Visit 1. START - * Eliqis 5mg BID * cardizem CD 240mg qam * metoprolol succinate 100mg HS 2. HOLD losartan 3. 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 Patient states he was in his usual state of health until last Thursday when he was playing a round of golf and noted dyspnea on exertion. He typically does not have any shortness of breath while golfing. Then on Thursday of this week he was walking his dog up a hill in [place] and noted dyspnea on exertion once again which is not typical for him. He then noted on that he simply wasn't feeling that well. He continued to note mild dyspnea on exertion. Then, early this am, he had the orthopnea/etc that was mentioned above. Upon presentation to [facility] he was found to be in rapid a.fib. Lopressor 5mg x 3 doses IV were given without rate improvement. Thus, diltiazem drip was initiated. Denies any LE edema or abdominal swelling. Denies any prior h/o a.fib. Denies excessive etoh use although he does drink a couple of times/week - perhaps 2-3 beers each time. Denies recent travel. Denies any prior thyroid disease. Had sleep study a few years ago showing mild YOCASTA only. states he still continues to snore very loudly at night. Discharge Exam gen - pleasant, obese, NAD neck - no obvious JVD heart - tachy, HR about 100-105; s1 s2, irregularly irregular, no murmur lungs - fine b/l basilar rales resolved, no increased work of breathing, no wheezes abd - soft NT ND BS+; no HSM ext - no edema vascular - pulses b/l feet 2+ Discharge Plan Discharge Items Patient Disposition: Home - Self-Care Reason For Visit: Atrial fibrillation Discharge Diagnosis: 1. new-onset atrial fibrillation - improving 2. suspected pulmonary edema (fluid in the lungs) - resolved 3. high blood pressure 4. snoring - repeat outpatient sleep study needed Activity: As commented below Activity Comment: light activities only until cleared by cardiology Lifting: No more than 25 pounds Sexual Activity: Wait until after follow-up appointment Exercise/Sports: Wait until after follow-up appointment Non-emergency contact: Primary Care Provider and Professional Application Designer Call non-emergency contact if: you have any medication questions and your sym ptoms worsen Follow-up/Referrals: Enid Frye MD [Primary Care Provider] - (within 1 week ) Elyssa Roberts DO [Physician] - (within 1 week ) Diet: Heart Healthy Addtl Attending Provider Instructions: Mr Kruse, You were hospitalized for new-onset atrial fibrillation. This was treated with medicines that slow your heart rate down. You also received blood thinner medicine (Eliquis). This prevents the formation of blood clots in your heart that can cause stroke. Both [facility] and [facility] saw you in consult during your stay. Your echocardiogram showed normal heart function and normal valve function. In addition to the above you received furosemide diuretic for the suspected fluid build-up (pulmonary edema) in your lungs. You received this for 3 days. Your lungs are now clear and oxygen levels are normal. The fluid built-up likely as a result of the rapid atrial fibrillation. Recommendations - 1. Take Eliquis blood thinner - 5mg twice daily. 2. For atrial fibrillation take - -metoprolol succinate 100mg at bedtime; start TONIGHT -cardizem CD (diltiazem) 240mg each morning; start TOMORROW 3. STOP your hydrochlorothiazide. 4. HOLD your losartan for now. 5. Please purchase a blood pressure cuff that can also read your pulse/heart rate. I would purchase a machine than can take the measurements on the upper arm. Please check your blood pressure and heart rate at least twice daily and write these down in a notebook. If your systolic blood pressure (the "top" number) is consistently greater than 140 then resume your losartan. If your systolic blood pressure is consistently below 140 please hold the losartan for now. If your pulse rate is consistently greater than 100 over the next 2-[address] Roberts's office know. 6. Please check your weight on the same scale EVERY MORNING when you wake up. Use the bathroom to void, then afterwards check your weight. Keep a log of your weights. If you gain more than 3 pounds of weight over a 1-2 day period this may indicate the beginning of fluid retention from the heart issues. If you see this happening please take the furosemide diuretic (with the potassium). Taking it in the morning is the most ideal time. If you have to take the furosemide please let Dr Roberts or one of her partners know - call their office for additional guidance. 7. Follow-up - see separate section. Return to [facility] if - -you have worsening shortness of breath -you have chest pains -you feel dizzy or lightheaded -you have bleeding from any location as listed below -any other concerns It was our pleasure to care for you! 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 Anticoagulants will thin your blood to help prevent clots from forming in your heart. Your blood thinner is ELIQUIS. * You should take your medication exactly as directed. * Never skip a dose. * Never take a double dose. If you miss a dose, take it as soon as you remember. Call your Primary Care doctor or Professional Application Designer if you experience any of the following: * Chest Pain * Sudden Shortness of Breath * Rapid or pounding heart beat * Fainting * Dizziness * Cough with blood or bloody sputum * Sweating more than normal * Bruises * Heavy or uncontrolled bleeding * Blood in your urine, stool or vomit * Black or tarry stools * Heavy nose bleeding Caring for Your Self at Home: * It is best to use an electric shaver when on a blood thinner rather than using a traditional razor * There is less chance of bleeding with an electric shaver Pending Studies at Discharge: No Stand-Alone Forms: My [facility], Smoking Cessation Medications and DC Order Prescriptions: New diltiazem HCl 240 mg Capsule,Extended Release 24hr 240 mg PO QAM Qty: 30 5RF Eliquis 5 mg Tablet 5 mg PO BID Qty: 60 2RF metoprolol succinate 100 mg tablet extended release 24 hr 100 mg PO HS Qty: 30 5RF furosemide [Lasix] 20 mg tablet 20 mg PO QAM PRN (Reason: fluid weight gain) Qty: 20 0RF potassium chloride 20 mEq tablet extended release 20 meq PO DAILY PRN (Reason: only take IF you take furosemide diuretic ) Qty: 20 0RF Continued escitalopram oxalate [Lexapro] 10 mg tablet 20 mg PO PM Held losartan 100 mg tablet 100 mg PO PM Hold Instructions: hold for now; please follow blood pressure parameters as noted in your discharge paperwork Discontinued hydrochlorothiazide 25 mg tablet 25 mg PO QAM Rx Instructions: takes when he remembers Discharge Orders: Discharge Order (Routine); Ordered 10/02/24 Ordered By: Missael La/Other Patient Handouts: Apixaban Oral Tablet, AFib Preventing Stroke, Having Electrical Cardioversion, ED Atrial Fibrillation Admission Data Admit Date/Time: 09/30/24 11:45 Attending Provider: Missael Jones Admit Provider: Missael Jones Primary Care Provider: Enid Frye Other Providers: Aung Adhikari; Elyssa Roberts Other Interventions: Discharge Summary Assessment (RN) Last Done: 10/02/24 18:02 Hospital Stay Data Consultations [facility] Procedures Performed Echocardiogram: EF 55-60%, mild LVH, mild mitral regurgitation Diagnostic Imagining Performed Chest X-Ray 09/30/24 09:39 XR chest 1V portable CLINICAL HISTORY: Dyspnea COMPARISON STUDY: None FINDINGS: Heart size and pulmonary vasculature are normal. Inspiration is shallow. No effusion, consolidation, or pneumothorax. IMPRESSION: No acute findings. ACT 112: Negative or not required by law. Electronically signed by: Keo Monterroso M.D. 09/30/2024 10:23 AM Pending Results Patient Have Any Pending Studies at Discharge: No Discharge Instructions Given to Patient (Per Discharging Provider) Mr Kruse, You were hospitalized for new-onset atrial fibrillation. This was treated with medicines that slow your heart rate down. You also received blood thinner medicine (Eliquis). This prevents the formation of blood clots in your heart that can cause stroke. Both [facility] and [facility] saw you in consult during your stay. Your echocardiogram showed normal heart function and normal valve function. In addition to the above you received furosemide diuretic for the suspected flui d build-up (pulmonary edema) in your lungs. You received this for 3 days. Your lungs are now clear and oxygen levels are normal. The fluid built-up likely as a result of the rapid atrial fibrillation. Recommendations - 1. Take Eliquis blood thinner - 5mg twice daily. 2. For atrial fibrillation take - -metoprolol succinate 100mg at bedtime; start TONIGHT -cardizem CD (diltiazem) 240mg each morning; start TOMORROW 3. STOP your hydrochlorothiazide. 4. HOLD your losartan for now. 5. Please purchase a blood pressure cuff that can also read your pulse/heart rate. I would purchase a machine than can take the measurements on the upper arm. Please check your blood pressure and heart rate at least twice daily and write these down in a notebook. If your systolic blood pressure (the "top" number) is consistently greater than 140 then resume your losartan. If your systolic blood pressure is consistently below 140 please hold the losartan for now. If your pulse rate is consistently greater than 100 over the next 2-[address] Roberts's office know. 6. Please check your weight on the same scale EVERY MORNING when you wake up. Use the bathroom to void, then afterwards check your weight. Keep a log of your weights. If you gain more than 3 pounds of weight over a 1-2 day period this may indicate the beginning of fluid retention from the heart issues. If you see this happening please take the furosemide diuretic (with the potassium). Taking it in the morning is the most ideal time. If you have to take the furosemide please let Dr Roberts or one of her partners know - call their office for additional guidance. 7. Follow-up - see separate section. Return to [facility] if - -you have worsening shortness of breath -you have chest pains -you feel dizzy or lightheaded -you have bleeding from any location as listed below -any other concerns It was our pleasure to care for you! -Dr Jones Total Time Total Time Spent Total Time Spent (In Minutes): 45 Coding Level of Care Code 12988 INP/OBS DISCH >30 MIN Diagnoses Atrial fibrillation with RVR I48.91 Pulmonary edema J81.1 Essential hypertension I10 Obesity (BMI 30-39.9) E66.9 Smokeless tobacco use Z72.0 Snoring R06.83
== END 2024-10-02 19:00 | disposition home or self-care (01) ==
LOC: ED 09:19 → 2E 11:45